=== PATIENT | female | born 1960 | race Caucasian/White ===

== ENCOUNTER 2018-05-21 00:22 | Emergency (ER) | payer MEDICARE, OTHER ==
[2018-05-21] MEDS ORDERED: BABY ASPIRIN 81 MG CHEW ONE (00:38)
[2018-05-21] MEDS ORDERED: NITRO-BID 2% UD PACKETS TOP ONE (00:38)
[2018-05-21] MEDS ORDERED: Sodium Chloride 0.9% 1000 ML 1,000 ML IV STA ×2 (00:38→04:27)
[2018-05-21] MEDS ORDERED: MORPHINE SULFATE 2 MG INJ IV ONE (00:38)
[2018-05-21] MEDS ORDERED: BABY ASPIRIN 81 MG CHEW PO ONE (00:38)
[2018-05-21] MEDS ORDERED: NITRO-BID 2% UD PACKETS ONE (00:39)
[2018-05-21] MEDS ORDERED: Sodium Chloride 0.9% 1000 ML 1,000 ML ONE ×2 (00:42→04:17)
[2018-05-21] MEDS ORDERED: MORPHINE SULFATE 2 MG INJ ONE (00:42)
[2018-05-21 00:50] LABS: BASOPHIL % 0.3 % (0.0-0.4); Basophil (Absolute #) 0.03 (0-0.4); Eosinophil % 2.2 % (0.00-5.0); Granulocyte Absolute (ANC) 4.35 (1.4-6.9); Granulocytes % 48.9 % (36.0-66.0); Hematocrit 38.1 % (35-47); Hemoglobin 12.6 gm/dl (12.0-16.0); Lymphocyte (Absolute #) 3.62 (1.0-4.6); Lymphocytes % 40.6 % (24.0-44.0); Mean Cell Volume 83.4 fl (78-100); Mean Corpuscular Hemoglobin 27.6 pg (26-32); Mean Corpuscular Hgb Concent. 33.1 g/dl (32-36); Mean Platelet Volume 10.4 fl (6-9.5); Monocyte (Absolute #) 0.71 (0.0-1.3); Platelet Count 219 K/mm3 (150-450); Red Blood Count 4.57 M/mm3 (4.1-5.4); Red Cell Distribution Width 14.1 % (11.5-14.0); White Blood Count 8.9 K/mm3 (4.0-10.5)
[2018-05-21 01:10] LABS: ALBUMIN 4.3 g/dL (3.5-5.0); ALKALINE PHOSPHATASE 85 U/L (38-126); ANION GAP 12.5 MEQ/L (5-15); BLOOD UREA NITROGEN 24 mg/dL (7-17); CHLORIDE 106 mmol/L (98-107); Calcium 9.9 mg/dL (8.4-10.2); Carbon Dioxide 27 mmol/L (22-30); Creatinine 1 0.83 mg/dL (0.52-1.04); Glucose 121 mg/dL (74-106); NT PRO BNP 77.7 pg/mL (0-900); Potassium 3.8 mmol/L (3.5-5.1); SGOT/AST 17 U/L (14-36); SGPT/ALT 16 U/L (0-35); SODIUM 142 mmol/L (137-145); Total Protein 7.2 g/dL (6.3-8.2)
[2018-05-21] MEDS ORDERED: Zofran 4 MG/2 ML VIAL ONE (02:08)
[2018-05-21 05:30] LABS: Appearance CLEAR (CLEAR); Bacteria RARE /HPF (NEGATIVE); Bilirubin NEGATIVE (NEGATIVE); Blood NEGATIVE Ery/ul (0-5); Epithelial Cells RARE /HPF (FEW); Glucose NEGATIVE (NEGATIVE); Ketones NEGATIVE (NEGATIVE); Leukocyte Esterase NEGATIVE (NEGATIVE); Mucus SLIGHT /HPF (NEGATIVE); Nitrite NEGATIVE (NEGATIVE); Protein,Urine Dip NEGATIVE (Negative); RBC 0-2 /HPF (0-2); Specific Gravity 1.013 (1.005-1.025); Urobilinogen NEGATIVE mg/dL (0-1)
[2018-05-21 05:48] VITALS: BP 121/65; PULSE 61; O2SAT 99
[2018-05-21] MEDS ORDERED: TORAdol 30 mg Injection IV ONE (06:09)
[2018-05-21] MEDS ORDERED: TORAdol 30 mg Injection ONE (06:12)
--- NOTE | 2018-05-21 06:15 | ERPHSYRPT ---
- History of Present Illness Historian: patient Exam Limitations: no limitations Patient Subjective Stated Complaint: Chest pain Triage Nursing Assessment: Patient ambulated back to ED and transferred self to bed. Patient A+O X 3. Patient complains of chest pain that started an hour ago while in bed. Patient states her chest hurts the radiates down left side and into back 5/10. Lungs noted to be clear a/p judi. No edema noted. Heart tones WNL. Physician History: Pt is a 57 y/o female that stated, all day she had chest discomfort that initiated below her breast and wrapped around to her sub sternal area. Pt eventually decided to come to the ER, to make sure she is not having cardiac problem. Pt states, had nausea but not vomiting. No SOB or cough. No F/C/S. No abdominal pain. The pain is not reproducible. Timing/Duration: today Activities at Onset: none Quality: pressure, sharpness Location: substernal, other (below the left breast) Chest Pain Radiation: no radiation Severity of Pain-Max: moderate Severity of Pain-Current: moderate Modifying Factors: Improves With: nothing Prior Chest Pain/Cardiac Workup: no prior chest pain Nitro Today/Relief: no nitro taken today Aspirin Treatment Today: no aspirin today Allergies/Adverse Reactions: No Known Drug Allergies Allergy (Verified 05/21/18 00:28) Home Medications: Hydrocodone/APAP 10/325 mg [Elmo 10/325 MG Tablet] 1 tab PO Q4HPRN PRN [History] Nebivolol HCl [Bystolic] 1 tab PO DAILY 03/02/14 [History] Hx Tetanus, Diphtheria Vaccination/Date Given: No Hx Influenza Vaccination/Date Given: Yes Hx Pneumococcal Vaccination/Date Given: No Immunizations Up to Date: Yes - Review of Systems Constitutional: No Fever, No Chills Eyes: No Symptoms Ears, Nose, & Throat: No Symptoms Respiratory: No Cough, No Dyspnea Cardiac: Chest Pain Abdominal/Gastrointestinal: No Abdominal Pain, No Nausea, No Vomiting, No Diarrhea Genitourinary Symptoms: No Dysuria Musculoskeletal: No Back Pain, No Neck Pain Neurological: No Dizziness, No Focal Weakness, No Sensory Changes - Past Medical History Pertinent Past Medical History: Yes Neurological History: No Pertinent History ENT History: No Pertinent History Cardiac History: No Pertinent History Respiratory History: Bronchitis Endocrine Medical History: No Pertinent History Musculoskeletal History: Other GI Medical History: No Pertinent History History: No Pertinent History Psycho-Social History: No Pertinent History Female Reproductive Disorders: No Pertinent History Other Medical History: BACK PAIN - Past Surgical History Past Surgical History: Yes Neuro Surgical History: No Pertinent History Cardiac: No Pertinent History Respiratory: No Pertinent History Gastrointestinal: Cholecystectomy Genitourinary: No Pertinent History Musculoskeletal: Other Female Surgical History: Hysterectomy Other Surgical History: BACK SURGERY. IMPLANTED NERVE STIMULATOR - Social History Smoking Status: Never smoker Exposure to second hand smoke: No Drug Use: none Patient Lives Alone: No - Female History Hx Last Menstrual Period: Hysterectomy Hx Now: No - Nursing Vital Signs Nursing Vital Signs: Initial Vital Signs Temperature 98.0 F 05/21/18 00:29 Pulse Rate 62 05/21/18 00:29 Respiratory Rate 18 05/21/18 00:29 Blood Pressure 129/75 05/21/18 00:29 O2 Sat by Pulse Oximetry 97 05/21/18 00:29 Pain Scale Pain Intensity 4 - Physical Exam General Appearance: mild distress Eye Exam: PERRL/EOMI, eyes nml inspection Ears, Nose, Throat Exam: normal ENT inspection, moist mucous membranes Neck Exam: normal inspection, non-tender, supple, full range of motion Respiratory Exam: normal breath sounds, lungs clear, No respiratory distress Cardiovascular Exam: regular rate/rhythm, normal heart sounds, other (Pain is non reproducible.) Gastrointestinal/Abdomen Exam: soft, No tenderness, No mass Extremity Exam: normal inspection, normal range of motion Neurologic Exam: alert, oriented x 3, cooperative, normal mood/affect, sensation nml, No motor deficits SpO2: 99 - Course Nursing assessment & vital signs reviewed: Yes EKG Interpreted by Me: RATE (58bpm.), Sinus Samy, NORMAL ST-T Ordered Tests: Active Orders 24 hr Category Date Time Status EKG-ER Only STAT Care 05/21/18 00:38 Active IV Insertion STAT Care 05/21/18 00:38 Active CHEST 2 VIEWS (PA AND LAT) Stat Exams 05/21/18 00:38 Taken CBC W DIFF Stat Lab 05/21/18 00:30 Completed CMP Stat Lab 05/21/18 00:30 Completed NT PRO BNP Stat Lab 05/21/18 00:30 Completed TROPONIN Q3H Lab 05/21/18 00:30 Completed TROPONIN Q3H Lab 05/21/18 04:05 Completed TROPONIN Q3H Lab 05/21/18 06:45 Ordered TROPONIN Q3H Lab 05/21/18 09:45 Ordered TROPONIN Q3H Lab 05/21/18 12:45 Ordered Urinalysis with Microscopy Stat Lab 05/21/18 04:30 Completed Medication Summary Discontinued Medications Generic Name Dose Route Start Last Admin Trade Name Faisal PRN Reason Stop Dose Admin Aspirin 324 mg 05/21/18 00:38 05/21/18 00:49 Baby Aspirin 81 Mg Chew PO 05/21/18 00:39 324 mg STAT ONE Administration Aspirin Confirm 05/21/18 00:38 Baby Aspirin 81 Mg Chew Administered 05/21/18 00:39 Dose 324 mg .ROUTE .STK-MED ONE Sodium Chloride 1,000 mls @ 999 mls/hr 05/21/18 00:38 05/21/18 02:10 Sodium Chloride 0.9% 1000 Ml IV 05/21/18 01:38 Infused .Q1H1M STA Infusion Sodium Chloride Confirm 05/21/18 00:42 Sodium Chloride 0.9% 1000 Ml Administered 05/21/18 00:43 Dose 1,000 mls @ ud .ROUTE .STK-MED ONE Sodium Chloride Confirm 05/21/18 04:17 Sodium Chloride 0.9% 1000 Ml Administered 05/21/18 04:18 Dose 1,000 mls @ ud .ROUTE .STK-MED ONE Sodium Chloride 1,000 mls @ 999 mls/hr 05/21/18 04:27 05/21/18 04:28 Sodium Chloride 0.9% 1000 Ml IV 05/21/18 05:27 999 mls/hr .Q1H1M STA Administration Morphine Sulfate 2 mg 05/21/18 00:38 05/21/18 00:49 Morphine Sulfate 2 Mg Inj IV 05/21/18 00:39 2 mg STAT ONE Administration Morphine Sulfate Confirm 05/21/18 00:42 Morphine Sulfate 2 Mg Inj Administered 05/21/18 00:43 Dose 2 mg .ROUTE .STK-MED ONE Nitroglycerin 1 gm 05/21/18 00:38 05/21/18 00:47 Nitro-Bid 2% Ud Packets TOP 05/21/18 00:39 1 gm STAT ONE Administration Nitroglycerin Confirm 05/21/18 00:39 Nitro-Bid 2% Ud Packets Administered 05/21/18 00:40 Dose 1 gm .ROUTE .STK-MED ONE Ondansetron HCl Confirm 05/21/18 02:08 Zofran 4 Mg/2 Ml Vial Administered 05/21/18 02:09 Dose 4 mg .ROUTE .STK-MED ONE Lab/Rad Data: Laboratory Result Diagrams 05/21/18 00:30 05/21/18 00:30 Laboratory Results 05/21/18 05/21/18 05/21/18 Range/Units 04:30 04:05 00:30 WBC (4.0-10.5) K/mm3 RBC (4.1-5.4) M/mm3 Hgb (12.0-16.0) gm/dl Hct (35-47) % MCV (78-100) fl MCH (26-32) pg MCHC (32-36) g/dl RDW (11.5-14.0) % Plt Count (150-450) K/mm3 MPV (6-9.5) fl Gran % (36.0-66.0) % Eos # (Auto) (0-0.5) Absolute Lymphs (auto) (1.0-4.6) Absolute Monos (auto) (0.0-1.3) Lymphocytes % (24.0-44.0) % Monocytes % (0.0-12.0) % Eosinophils % (0.00-5.0) % Basophils % (0.0-0.4) % Absolute Granulocytes (1.4-6.9) Basophils # (0-0.4) Sodium (137-145) mmol/L Potassium (3.5-5.1) mmol/L Chloride (98-107) mmol/L Carbon Dioxide (22-30) mmol/L Anion Gap (5-15) MEQ/L BUN (7-17) mg/dL Creatinine (0.52-1.04) mg/dL Estimated GFR ML/MIN Glucose (74-106) mg/dL Calcium (8.4-10.2) mg/dL Total Bilirubin (0.2-1.3) mg/dL AST (14-36) U/L ALT (0-35) U/L Alkaline Phosphatase (38-126) U/L Troponin I < 0.012 < 0.012 (0.000-0.034) ng/mL NT-Pro-B Natriuret Pep (0-900) pg/mL Serum Total Protein (6.3-8.2) g/dL Albumin (3.5-5.0) g/dL Urine Color YELLOW (YELLOW) Urine Appearance CLEAR (CLEAR) Urine pH 6.0 (5-6) Ur Specific [place] 1.013 (1.005-1.025) Urine Protein NEGATIVE (Negative) Urine Ketones NEGATIVE (NEGATIVE) Urine Blood NEGATIVE (0-5) Esteban/ul Urine Nitrite NEGATIVE (NEGATIVE) Urine Bilirubin NEGATIVE (NEGATIVE) Urine Urobilinogen NEGATIVE (0-1) mg/dL Ur Leukocyte Esterase NEGATIVE (NEGATIVE) Urine WBC (Auto) 3-5 (0-5) /HPF Urine RBC (Auto) 0-2 (0-2) /HPF U Hyaline Cast (Auto) 6-10 (0-2) /LPF U Epithel Cells (Auto) RARE (FEW) /HPF Urine Bacteria (Auto) RARE (NEGATIVE) /HPF Other Casts (Auto) NEGATIVE (NEGATIVE) /LPF Urine Mucus (Auto) SLIGHT (NEGATIVE) /HPF Urine Glucose NEGATIVE (NEGATIVE) mg/dL 05/21/18 05/21/18 Range/Units 00:30 00:30 WBC 8.9 (4.0-10.5) K/mm3 RBC 4.57 (4.1-5.4) M/mm3 Hgb 12.6 (12.0-16.0) gm/dl Hct 38.1 (35-47) % MCV 83.4 (78-100) fl MCH 27.6 (26-32) pg MCHC 33.1 (32-36) g/dl RDW 14.1 H (11.5-14.0) % Plt Count 219 (150-450) K/mm3 MPV 10.4 H (6-9.5) fl Gran % 48.9 (36.0-66.0) % Eos # (Auto) 0.20 (0-0.5) Absolute Lymphs (auto) 3.62 (1.0-4.6) Absolute Monos (auto) 0.71 (0.0-1.3) Lymphocytes % 40.6 (24.0-44.0) % Monocytes % 8.0 (0.0-12.0) % Eosinophils % 2.2 (0.00-5.0) % Basophils % 0.3 (0.0-0.4) % Absolute Granulocytes 4.35 (1.4-6.9) Basophils # 0.03 (0-0.4) Sodium 142 (137-145) mmol/L Potassium 3.8 (3.5-5.1) mmol/L Chloride 106 (98-107) mmol/L Carbon Dioxide 27 (22-30) mmol/L Anion Gap 12.5 (5-15) MEQ/L BUN 24 H (7-17) mg/dL Creatinine 0.83 (0.52-1.04) mg/dL Estimated GFR > 60.0 ML/MIN Glucose 121 H (74-106) mg/dL Calcium 9.9 (8.4-10.2) mg/dL Total Bilirubin 0.30 (0.2-1.3) mg/dL AST 17 (14-36) U/L ALT 16 (0-35) U/L Alkaline Phosphatase 85 (38-126) U/L Troponin I (0.000-0.034) ng/mL NT-Pro-B Natriuret Pep 77.7 (0-900) pg/mL Serum Total Protein 7.2 (6.3-8.2) g/dL Albumin 4.3 (3.5-5.0) g/dL Urine Color (YELLOW) Urine Appearance (CLEAR) Urine pH (5-6) Ur Specific [place] (1.005-1.025) Urine Protein (Negative) Urine Ketones (NEGATIVE) Urine Blood (0-5) Esteban/ul Urine Nitrite (NEGATIVE) Urine Bilirubin (NEGATIVE) Urine Urobilinogen (0-1) mg/dL Ur Leukocyte Esterase (NEGATIVE) Urine WBC (Auto) (0-5) /HPF Urine RBC (Auto) (0-2) /HPF U Hyaline Cast (Auto) (0-2) /LPF U Epithel Cells (Auto) (FEW) /HPF Urine Bacteria (Auto) (NEGATIVE) /HPF Other Casts (Auto) (NEGATIVE) /LPF Urine Mucus (Auto) (NEGATIVE) /HPF Urine Glucose (NEGATIVE) mg/dL - Progress Progress: improved Air Movement: fair Progress Note: 05/21/18 06:17 Pt was given ASA 324mg, and Nitro paste was placed. IVF were initiated. Pt was given Morphine for pain. Labs were normal. Troponin Ix2 were normal, as well as UA. Pt did develop hypotension with the Nitro, that was removed, and IVF bolus was given. She had LOPEZ that was treated with Toradol. I explained to the pt that she did not have ACS today, but she should f/u with her PCP, and consider stress test as out pt. Pt will follow. Blood Culture(s) Obtained: No Antibiotics given: No Discussed with Dr.: Bobby Will see patient in: office Counseled pt/family regarding: need for follow-up - Departure Time of Disposition: 06:19 Departure Disposition: Home Clinical Impression: Chest pain Condition: Stable Critical Care Time: No Referrals: ALLI SCHWARTZ MD [Primary Care Provider] - Additional Instructions: F/U with PCP next week and consider stress test.
--- NOTE | 2018-05-21 07:44 | XRAY ---
Indication: Chest pain. Comparison: April 09, 2013. PA/lateral chest remains clear. Heart and mediastinal structures within normal limits. Bony thorax intact with new spinal stimulator leads terminating T6/T7 level and stable T12 kyphoplasty. Impression: Nonacute chest with chronic features.
== END 2018-05-21 06:27 | disposition home or self-care (01) ==
LOC: ED 00:22
DX: R07.89 Other chest pain (principal)
CPT/HCPCS: 36000; 36415; 71046; 80053; 81001; 83880; 84484; 85025; 93005; 96360; 96361; 96374; 96375; 99285; J1885; J2270; J2405; A9270-GY